=== PATIENT | female | born 1975 | race Caucasian/White ===

== ENCOUNTER 2020-12-12 15:06 | Outpatient (CLI) | payer OTHER ==
--- NOTE | 2020-12-12 15:47 | SLEEP CARE CONSULTATION ---
Information from patient questionnaire entered by Jesús Bejarano. I have reviewed and concur with the information entered by Jesús Bejarano. This document represents the service I personally performed and the decisions made by me, Ana Bautista ARNP. History of Present Illness Service Date and Time: 12/12/2020 1506 Reason for Visit: New patient Chief Complaint: reports: Unrefreshed sleep, Snoring, Excessive daytime sleepiness, Frequent awakenings at night Date of Onset: For about 4 months or so Usual bedtime: 8 PM Time it takes to fall asleep: Usually fall right to sleep Snores at night: Yes Observed to quit breathing while asleep: No Sleeps alone due to snoring: No Number of times waking at night: More than once at least Reasons for waking at night: reports: Snoring, Bathroom, Other (Noise). denies: Choking, Gasping for air Toss, Turn, or Twitch while sleeping: Yes Recalls having dreams: No Usually gets out of bed at: 5-5:30 AM weekdays, 8 AM weekends Feels refreshed in the morning: No Morning headache: Yes (sometimes. Sometimes lasts through lunch time) Sleepy or fatigued during the day: Yes Ever fallen asleep while driving: No Takes day naps: Yes (on weekends if any) Dreams during day naps: No Prior sleep studies: No Additional HPI information: I had the pleasure of seeing LOLIS MIGUEL today regarding the possibility of her having a sleep disorder. Her current complaints are unrefreshed sleep, snoring and frequent night awakenings. She mentioned to her PCP that her complained of her snoring really loud. He wakes her up to get her to turn over or stop snoring. She has woken herself up snoring, but denies choking or gasping in her sleep. Her has never mentioned that she stopped breathing when sleeping. She states she does not wake up feeling rested and is very sleepy during the day. She states she lays down about 8 PM and is not sure how soon she falls asleep. She does not think it is very long. She wakes up on week days at 0500 to 0530 and on weekends can sleep till 8 AM. She denies any family history of sleep apnea. She is currently being evaluated for heart palpitations, there is a family history of heart arrhythmias. - Parasomnia Symptoms Ever been unable to move upon waking from sleep: No Walks in sleep: No Talks in sleep: No Ever acted out dreams in sleep: No Ever felt weak in the knees when startled or emotional: No Bothered by creepy, crawly, restless sensations in legs: No (mostly at night and usually when laying on her back) Problems with memory or concentration: Yes (both) Subjective Initial [place] Sleepiness Scale score: 17 (in 2020) Past Medical History Past Medical History: reports: Anxiety, Asthma, Other (has had palpitations with difficulty breathing/anxiety; not regular; PCP evaluating currently) Social History 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 Patient is and lives in [place]. Have you smoked in the past 12 months: No Alcohol use: No Caffeine use: Yes Caffeine amount and frequency: One cup each morning Family History Family history of sleep disordered breathing: No Allergies and Home Medications Drug allergies reviewed: Yes (NKDA) Home medication list reviewed: Yes (not taking any medications) Allergy and home medication list: Multivitamin Elderberry Review of Systems Weight gain over past 5 years: 60 Weight loss over past 5 years: 100 Cardiovascular: denies: high blood pressure Gastrointestinal: reports: heartburn Neurological: denies: headaches Psychiatric: reports: anxiety. denies: depression Ear/Nose/Throat: reports: wisdom teeth removed. denies: tonsillectomy Immunologic: reports: allergies to food or environment (Seasonal allergy-induced asthma cause some of the ears/nose/throat symptoms and allergic symptoms) Physical Exam Blood Pressure: 120/80 Cuff size: wrist Heart Rate: 89 O2 Saturation: 96 Height: 5 ft 9 in Weight: 282 lb Body Mass Index: 41.6 BMI Classification: Morbidly Obese Neck circumference: 15.30 (inches) Nostrils: patent to airflow Mouth and throat: narrow oropharynx Soft palate: long Hard palate: normal Uvula visualization: 25% Mallampati Class III Tongue: enlarged in size with teeth dunaway on lateral edges Tonsils: 2+ Chin and jaw: normal size and position Neck: normal w/o lymphadenopathy or thyromegaly Heart: regular rate and rhythm Lungs: clear bilaterally Impression and Plan 1. Suspected Obstructive Sleep Apnea-Hypopnea Syndrome, as suggested by a history of loud and irregular snoring, morning headache, frequent awakening during the night, unrefreshed sleep, cognitive impairment, and excessive daytime sleepiness. Narrow oropharynx and obesity are common predisposing factors for obstructive sleep apnea-hypopnea syndrome. I recommend proceeding to polysomnography to confirm the diagnosis and to assess severity. If the patient has significant sleep disordered breathing, a manual CPAP titration study will also be performed to find the optimal treatment pressure. I informed the patient of what the sleep studies involve and after some discussion, obtained agreement to proceed. The pathophysiology of obstructive sleep apnea-hypopnea syndrome was discussed with the patient and health risks of cardiovascular and cerebrovascular disease if not treated. Risks of drowsy driving discussed in detail and patient advised to avoid long distance driving and to cable puller at the first sign of drowsiness. Patient agreed to plan. * Schedule polysomnography +- manual CPAP titration study and return in 1-2 weeks after the study to discuss result and initiate therapy. * Avoid long distance driving or driving when feeling sleepy. * Avoid alcohol, sedative and muscle relaxant around bedtime. * Attempt to lose weight. * Review instructions provided by trained office staff on how to prepare for the sleep study. * Return for follow-up after sleep study completed. Counseling Topics: Weight loss health impact Visit Type: In Office Time Spent with Patient (minutes): 30 Provider Statement: I spent 100% of the Face to Face Visit with the patient with greater than 50% spent counseling the patient and coordination of care.
[2020-12-12 15:49] VITALS: BP 120/80
== END 2020-12-12 15:07 | disposition home or self-care (01) ==
LOC: SC 15:06
PROVIDERS: ATTEND Nurse Practitioner Family
DX: R06.83 Snoring (principal); R51.9 Headache, unspecified; G47.8 Other sleep disorders; R41.89 Other symptoms and signs involving cognitive functions and awareness; G47.10 Hypersomnia, unspecified; E66.01 Morbid (severe) obesity due to excess calories; Z68.41 Body mass index [BMI] 40.0-44.9, adult
CPT/HCPCS: 99203; 99212

== ENCOUNTER 2020-12-19 10:04 | Outpatient (CLI) | payer OTHER | END 2020-12-19 10:05 | disposition home or self-care (01) | LOC: SC 10:04 | PROVIDERS: ATTEND Nurse Practitioner Family | DX: R06.83 Snoring (principal); G47.8 Other sleep disorders; E66.01 Morbid (severe) obesity due to excess calories; Z68.41 Body mass index [BMI] 40.0-44.9, adult | CPT/HCPCS: 95806 ==

== ENCOUNTER 2020-12-26 16:45 | Outpatient (CLI) | payer OTHER ==
--- NOTE | 2020-12-26 17:10 | SLEEP CARE CONSULTATION ---
Information from patient questionnaire entered by Jesús Bejarano. I have reviewed and concur with the information entered by Jesús Bejarano. This document represents the service I personally performed and the decisions made by , Ana Bautista ARNP. History of Present Illness Service Date and Time: 12/26/2020 1645 Initial [place] Sleepiness Scale score: 17 (in 2020) Current [place] Sleepiness Scale score: 15 Additional HPI information: LOLIS MIGUEL returns for follow up and results of the recently performed home sleep study. The patient was informed of the following findings: no significant sleep disordered breathing with an average AHI of 1.0 and elsa oxygen saturation of 85%. This study was of fair quality due to partial loss of airflow signal. Patient did not sleep supine, no measurement on back during the study. I explained the pathophysiology behind obstructive sleep apnea. Patient does not have sleep apnea and was advised how weight gain could increase the risk of developing sleep apnea in the future. I strongly encouraged the patient to lose weight. Patient has mild to moderate snoring. Snoring can be reduced by weight loss. Weight loss is best achieved with diet consult. Patient instructed to contact PCP for referral. Snoring can also be treated with an oral appliance from a dentist. Advised to check insurance coverage. In addition, an ENT evaluation can be do to see if other treatment is indicated. Patient counseled not drink alcohol less than 4 hours before bedtime as it can increase snoring and apnea. Patient was cautioned about risks of drowsy driving until sleepiness symptoms resolve. Sleep Study - Results Type of Sleep Study: Home sleep study Prior sleep studies: No Polysomnography/Home Sleep Study results: Physician Impression: The quality of the study is fair due to partial loss of airflow signal.. The length of the study is adequate (> 240 minutes). Please also see the tabulated and graphic data. 1. No significant sleep disordered breathing, with an AHI of 1.0/hr and elsa SaO2 of 85%. During the study, the patient had 2 apneas (2 obstructive, 0 central, 0 mixed) and 5 hypopneas. The longest episode lasted 56.5 seconds. The patient did not sleep supine during this study (supine AHI was 0.0 and non-supine, 1.07). 2. Hypoxemia (ICD-10 R09.02), minimal, with the lowest oxygen saturation of 85 % and 0.2 minutes with SaO2 under 90%. Baseline oxygen saturation was normal (Average oxygen saturation was 94%). Allergies and Home Medications Home medication list reviewed: Yes (no changes) Review of Systems Review of systems same as previous: Yes (no changes) Physical Exam Heart Rate: 79 O2 Saturation: 99 Height: 5 ft 9 in Weight: 283 lb Body Mass Index: 41.8 BMI Classification: Morbidly Obese Impression and Plan 1. Suspected Obstructive Sleep Apnea-Hypopnea Syndrome, as suggested by a h istory of loud and irregular snoring, morning headache, frequent awakening during the night, unrefreshed sleep, cognitive impairment, and excessive daytime sleepiness. Patient is here for follow up of HST. We got a fair study due to partial loss of airflow signal. I recommend proceeding to polysomnography to confirm the diagnosis and to assess severity. I obtained agreement to proceed with in lab PSG. The pathophysiology of obstructive sleep apnea-hypopnea syndrome was discussed with the patient and health risks of cardiovascular and cerebrovascular disease if not treated. Risks of drowsy driving discussed in detail and patient advised to avoid long distance driving and to hide puller at the first sign of drowsiness. Patient agreed to plan. * Schedule polysomnography +- manual CPAP titration study and return in 1-2 weeks after the study to discuss result and initiate therapy. * Avoid long distance driving or driving when feeling sleepy. * Avoid alcohol, sedative and muscle relaxant around bedtime. * Attempt to lose weight. * Review instructions provided by trained office staff on how to prepare for the sleep study. * Return for follow-up after sleep study completed. Counseling Topics: Weight loss health impact Visit Type: In Office Time Spent with Patient (minutes): 13 Provider Statement: I spent 100% of the Face to Face Visit with the patient with greater than 50% spent counseling the patient and coordination of care.
== END 2020-12-26 16:46 | disposition home or self-care (01) ==
LOC: SC 16:45
PROVIDERS: ATTEND Nurse Practitioner Family
DX: R06.83 Snoring (principal); R51.9 Headache, unspecified; G47.8 Other sleep disorders; R41.89 Other symptoms and signs involving cognitive functions and awareness; G47.10 Hypersomnia, unspecified; E66.01 Morbid (severe) obesity due to excess calories; Z68.41 Body mass index [BMI] 40.0-44.9, adult
CPT/HCPCS: 99212